=== PATIENT | male | born 1980 | race Asian ===

== ENCOUNTER 2020-03-05 15:38 | Emergency (ER) | payer BC ==
[2020-03-05] MEDS ORDERED: RINGERS SOLUTION,LACTATED 1,000 ML IV ONE (16:43)
--- NOTE | 2020-03-05 16:44 | ER Document Report ---
ED Medical Screen (RME) - General Chief Complaint: Abdominal Pain Stated Complaint: ABDOMINAL PAIN Time Seen by Provider: 03/05/20 16:39 Mode of Arrival: Ambulatory Information source: Patient Notes: HPI; 39-year-old male presents emergency room with intermittent left upper abdominal pain for the past 2 to 3 days. Worse today. Complains of nausea but no vomiting. No fevers. No urinary symptoms. PE: Oriented x3. Mild distress noted. Abdomen rigid no guarding, no rebound : Clear to auscultation without rales, rhonchi, wheezes. Heart: Regular rate rhythm without murmurs rubs or gallops. I have greeted and performed a rapid initial assessment of this patient. A comprehensive ED assessment and evaluation of the patient, analysis of test results and completion of the medical decision making process will be conducted by additional ED providers. I have specifically instructed the patient or family members with the patient to immediately return to any nursing staff should anything change in the patient's condition or with their chief complaint. - Related Data Allergies/Adverse Reactions: No Known Allergies Allergy (Verified 03/05/20 16:39) Physical Exam - Vital signs Vitals: Temp Pulse Resp BP Pulse Ox 98.3 F 86 14 126/80 H 97 03/05/20 15:41 03/05/20 15:41 03/05/20 15:41 03/05/20 15:41 03/05/20 15:41 Course - Vital Signs Vital signs: Temp Pulse Resp BP Pulse Ox 98.3 F 86 14 126/80 H 97 03/05/20 15:41 03/05/20 15:41 03/05/20 15:41 03/05/20 15:41 03/05/20 15:41
[2020-03-05 17:29] LABS: ABSOLUTE EOSINOPHILS # (AUTO) 0.1 10^3/uL (0.0-0.6); ABSOLUTE MONOCYTES (AUTO) 0.6 10^3/uL (0.1-1.4); MEAN CORPUSCULAR HEMOGLOBIN 29.6 pg (27.0-33.4); TOTAL CELLS COUNTED % (AUTO) 100 %
[2020-03-05 17:33] LABS: ABSOLUTE LYMPHOCYTES (AUTO) 2.2 10^3/uL (0.5-4.7); ABSOLUTE NEUT (AUTO) 3.6 10^3/uL (1.7-8.2); BASOPHILS % (AUTO) 0.5 % (0-2); EOSINOPHILS % (AUTO) 1.9 % (0-6); HEMATOCRIT 47.5 % (37.9-51.0); HEMOGLOBIN 16.2 g/dL (13.5-17.0); LYMPHOCYTES % (AUTO) 33.3 % (13-45); MEAN CORPUSCULAR HGB CONC 34.1 g/dL (32.0-36.0); MEAN CORPUSCULAR VOLUME 87 fl (80-97); MONOCYTES % (AUTO) 9.3 % (3-13); PLATELET COUNT 232 10^3/uL (150-450); RED BLOOD COUNT 5.46 10^6/uL (4.35-5.55); RED CELL DISTRIBUTION WIDTH 13.6 % (11.5-14.0); WHITE BLOOD COUNT 6.5 10^3/uL (4.0-10.5)
[2020-03-05 17:42] LABS: APPEARANCE,URINE CLEAR; BILIRUBIN,URINE NEGATIVE (NEGATIVE); COLOR,URINE YELLOW; GLUCOSE, URINE NEGATIVE (NEGATIVE); KETONES,URINE NEGATIVE (NEGATIVE); LEUKOCYTE ESTERASE,URINE NEGATIVE (NEGATIVE); NITRITE,URINE NEGATIVE (NEGATIVE); PROTEIN,URINE NEGATIVE (NEGATIVE); URINE SPECIFIC GRAVITY 1.021; UROBILINOGEN,URINE NEGATIVE mg/dL (<2.0)
[2020-03-05 17:45] LABS: ALBUMIN 4.6 g/dL (3.5-5.0); ALKALINE PHOSPHATASE 76 U/L (38-126); ANION GAP 7 (5-19); ASPARTATE AMINO TRANSFERASE 32 U/L (17-59); BILIRUBIN,TOTAL 1.3 mg/dL (0.2-1.3); BLOOD UREA NITROGEN 17 mg/dL (7-20); CALCIUM 9.6 mg/dL (8.4-10.2); CARBON DIOXIDE 31 mmol/L (22-30); CHLORIDE 101 mmol/L (98-107); GLUCOSE 110 mg/dL (75-110); POTASSIUM 4.3 mmol/L (3.6-5.0); TOTAL PROTEIN 8.1 g/dL (6.3-8.2)
--- NOTE | 2020-03-05 17:53 | RADIOLOGY REPORT (SQ) ---
EXAM DESCRIPTION: CT ABD/PELVIS WITH IV ONLY IMAGES COMPLETED DATE/TIME: 03/05/2020 5:29 pm REASON FOR STUDY: abdominal pain COMPARISON: None. TECHNIQUE: CT scan of the abdomen and pelvis performed using helical scanning technique with dynamic intravenous contrast injection. No oral contrast. Images reviewed with lung, soft tissue, and bone w indows. Reconstructed coronal and sagittal MPR images reviewed. Delayed images for evaluation of the urinary system also acquired. All images stored on PACS. All CT scanners at this facility use dose modulation, iterative reconstruction, and/or weight based d osing when appropriate to reduce radiation dose to as low as reasonably achievable (ALARA). [facility]: Dose Right [facility]: CareDose [facility]: Dose Right [facility]: Teradose 4D [facility]: Nu-Med Plus CONTRAST TYPE AND DOSE: 100 mL Isovue 370- low osmolar. RENAL FUNCTION: None required. The patient is less than 50 years old. RADIATION DOSE: CT Rad equipment meets quality standard of care and radiation dose reduction techniq ues were employed. CTDIvol: 6.2 - 8.4 mGy. DLP: 845 mGy-cm.. LIMITATIONS: None. FINDINGS: LOWER CHEST: No significant findings. LIVER: Normal size. No enhancing masses. No dilated ducts. SPLEEN: Normal size. No focal lesions. PANCREAS: No masses identified. No significant calcifications. No adjacent inflammation or peripancre atic fluid collections. Pancreatic duct not dilated. GALLBLADDER: No calcified stones. No inflammatory changes to suggest cholecystitis. ADRENAL GLANDS: No significant masses. RIGHT KIDNEY AND URETER: No cysts identified. No solid masses identified. No calcified stones. No hyd ronephrosis or hydroureter. LEFT KIDNEY AND URETER: No cysts identified. No solid masses identified. No calcified stones. No hydr onephrosis or hydroureter. AORTA AND VESSELS: No aneurysm. No dissection. Renal arteries, SMA, celiac without significant stenos is. RETROPERITONEUM: No bulky retroperitoneal adenopathy. BOWEL AND PERITONEAL CAVITY: No obstruction or inflammatory changes. No free fluid. APPENDIX: Normal. PELVIS: No mass. No free fluid. Unremarkable bladder. ABDOMINAL WALL: No masses. No hernias. BONES: No acute findings. OTHER: No other significant finding. IMPRESSION: NO ACUTE FINDINGS IN THE ABDOMEN OR PELVIS ON CT SCAN WITH IV CONTRAST. TECHNICAL DOCUMENTATION: JOB ID: [id number] [place]-72 Quality ID # [id number]: Final reports with documentation of one or more dose reduction techniques (e.g., Au tomated exposure control, adjustment of the mA and/or kV according to patient size, use of iterative reconstruction technique) 2010 [employer]- All Rights Reserved Reading location - IP/workstation name: [email or web address]
--- NOTE | 2020-03-05 20:30 | ER Document Report ---
ED GI/ - General Chief Complaint: Rib Pain Stated Complaint: ABDOMINAL PAIN Time Seen by Provider: 03/05/20 16:39 Mode of Arrival: Ambulatory Notes: Patient is a 39 year old male that comes to the Emergency Department for chief complaint of left upper abdominal pain and nausea (he points to the left upper abdomen). He states pain is intermittent but keeps returning. The pain has been present for the past few days. He denies vomiting, he is able to eat, he denies chest pain, shortness of breath, fever, injury, cough. He has had a right inguinal hernia repair and vasectomy. He takes no daily medications. He drinks alcohol every couple of days, he admits to large amount of caffeine use, he denies smoking or recreational drugs. - Related Data Allergies/Adverse Reactions: No Known Allergies Allergy (Verified 03/05/20 16:39) Past Medical History - General Information source: Patient - Social History Smoking Status: Former Smoker Chew tobacco use (# tins/day): Yes Frequency of alcohol use: Social Drug Abuse: None Lives with: Family Family History: Reviewed & Not Pertinent Patient has homicidal ideation: No - Past Medical History Cardiac Medical History: Reports: Hx Hypercholesterolemia, Hx Hypertension - Immunizations Immunizations up to date: Yes Hx Diphtheria, Pertussis, Tetanus Vaccination: Yes Review of Systems - Review of Systems Constitutional: No symptoms reported EENT: No symptoms reported Cardiovascular: No symptoms reported Respiratory: No symptoms reported Gastrointestinal: See HPI Genitourinary: No symptoms reported Male Genitourinary: No symptoms reported Musculoskeletal: No symptoms reported Skin: No symptoms reported Hematologic/Lymphatic: No symptoms reported Neurological/Psychological: No symptoms reported Physical Exam - Vital signs Vitals: Temp Pulse Resp BP Pulse Ox 98.3 F 86 14 126/80 H 97 03/05/20 15:41 03/05/20 15:41 03/05/20 15:41 03/05/20 15:41 03/05/20 15:41 - Notes Notes: GENERAL: Alert, interacts well. No acute distress. HEAD: Normocephalic, atraumatic. EYES: Pupils equal, round, and reactive to light. Extraocular movements intact. ENT: Oral mucosa moist, tongue midline. Oropharynx unremarkable. Airway patent. NECK: Full range of motion. Supple. Trachea midline. No lymphadenopathy. LUNGS: Clear to auscultation bilaterally, no wheezes, rales, or rhonchi. No respiratory distress. Non-tender chest wall. HEART: Regular rate and rhythm. No murmur ABDOMEN: Mild left upper quadrant tenderness, epigastric and right upper quadrant unremarkable, lower abdomen unremarkable, no rigidity or distention. GENITOURINARY: Deferred EXTREMITIES: Moves all 4 extremities spontaneously. No edema, normal radial and dorsalis pedis pulses bilaterally. No cyanosis. BACK: no cervical, thoracic, lumbar midline tenderness. No saddle anesthesia, normal distal neurovascular exam. Moves all extremities in full range of motion. NEUROLOGICAL: Alert and oriented x3. Normal speech. Cranial nerves II through XII grossly intact. Strength 5/5 in all extremities. PSYCH: Normal affect, normal mood. SKIN: Warm, dry, normal turgor. No rashes or lesions noted. Course - Re-evaluation Re-evalutation: Patient with mild left upper quadrant tenderness on exam, CBC unremarkable, chemistry unremarkable, lipase unremarkable, I did review CAT scan from triage and this showed no acute findings. Patient patient alcohol consumption, caffeine consumption, intermittent symptoms with nausea, work-up, evaluation I strongly suspect gastritis as a cause of patient's symptoms. Discussed work-up, provided medications, discussed follow-up and return precautions in detail. Patient states understanding and agreement. Stable and well-appearing at time of discharge. - Vital Signs Vital signs: Temp Pulse Resp BP Pulse Ox 98.1 F 59 L 16 121/77 99 03/05/20 20:44 03/05/20 20:44 03/05/20 20:44 03/05/20 20:44 03/05/20 20:44 - Laboratory Result Diagrams: 03/05/20 17:00 03/05/20 17:00 Laboratory results interpreted by me: 03/05/20 17:00 Carbon Dioxide 31 H Discharge - Discharge Clinical Impression: Left upper quadrant abdominal pain, Nausea Condition: Stable Disposition: HOME, SELF-CARE Additional Instructions: Your workup does not show any concerning findings. Your exam and symptoms are consistent with gastritis (inflammation of the upper abdominal tract). Take the carafate and famotidine to reat this, take the zofran for nausea if needed. You can take Tylenol, Tums, Rolaids, etc if needed for additional relief. Avoid caffeine, alcohol, smoking, NSAIDs (ibuprofen, naproxen, Asirin, BC powder, etc), especially while you are healing. Follow up with Primary Care for additional testing and evaluation if symptoms continue. Return for any concerning symptoms (severe worsening pain, vomiting, vomiting blood, black stools, fever, etc). Prescriptions: Sucralfate [Carafate 1 gm Tablet] 1 gm PO QID #20 tablet Famotidine [Pepcid 20 mg Tablet] 20 mg PO BID #20 tablet Ondansetron [Zofran Odt 4 mg Tablet] 1 - 2 tab PO Q4H PRN #15 tab.rapdis PRN Reason: For Nausea/Vomiting
[2020-03-05 20:45] VITALS: BP 121/77
== END 2020-03-05 21:08 | disposition home or self-care (01) ==
LOC: ER 15:38
DX: R10.12 Left upper quadrant pain (principal); R11.0 Nausea; R07.81 Pleurodynia; R10.9 Unspecified abdominal pain; Z98.52 Vasectomy status; Z98.890 Other specified postprocedural states; Z87.891 Personal history of nicotine dependence; I10 Essential (primary) hypertension
CPT/HCPCS: 99284; 96360; 36415; 83690; 85025; 80053; 81001; 74177; J7120